=== PATIENT | female | born 1970 | race Caucasian/White ===

== ENCOUNTER → 2016-09-02 | Outpatient (CLI) | payer OTHER | LOC: RAD 01:46 | DX: R92.1 Mammographic calcification found on diagnostic imaging of breast (principal) ==

== ENCOUNTER → 2017-03-12 | Outpatient (CLI) | payer OTHER | LOC: RAD 01:04 | DX: N63.20 Unspecified lump in the left breast, unspecified quadrant (principal); R92.2 Inconclusive mammogram; R92.1 Mammographic calcification found on diagnostic imaging of breast ==

== ENCOUNTER → 2018-03-25 | Outpatient (CLI) | payer OTHER | LOC: RAD 10:32 | DX: Z12.31 Encounter for screening mammogram for malignant neoplasm of breast (principal) ==

== ENCOUNTER → 2019-03-27 | Outpatient (CLI) | payer OTHER | LOC: BC 09:27 | DX: Z12.31 Encounter for screening mammogram for malignant neoplasm of breast (principal) ==

== ENCOUNTER → 2019-04-05 | Outpatient (CLI) | payer OTHER | LOC: ULTRA 11:20 | DX: N64.89 Other specified disorders of breast (principal) ==

== ENCOUNTER → 2019-04-11 | Outpatient (CLI) | payer OTHER ==
--- NOTE | 2019-04-13 12:07 | PATH ---
[facility] [place] [address] PATHOLOGY RPT PROCEDURE Name: HEIDE WESLEY Room #: REG [facility].#: [id number] Admission: 04/11/19 Date of : 70 Discharge: Report #: [id number] Path Case #: [id number] [facility] Accession Number: [id number] . 01 Material submitted: . PART A: breast - LEFT BREAST BIOPSY, 4:00, 5CM. Modifiers: left, 4:00 PART B: breast - LEFT BREAST BIOPSY, 7:00, 5CM. Modifiers: left, 7:00 . 01 Clinical history: . Mass. . 02 Diagnosis: A. Breast mass, left, 4:00, 5 cm from nipple, core needle biopsy: - Fibroepithelial lesion. (Please see comment) . B. Breast mass, left, 7:00, 5 cm from nipple, core needle biopsy: - Simple cysts. - Papillary apocrine metaplasia. - Focal microcalcifications present in association with simple cysts. (Please see comment) . (SKKiki:genny/shiv 04/13/2019) QTP 04/13/2019 0904 Local . 02 Comment: Specimen "A" contains a fibroepithelial lesion in which there are possible leaf-like projections. In addition, focal areas of stromal condensation are present around the ducts. A few mitotic figures are present in the stroma. The differential diagnosis of the lesion in specimen "A" includes a fibroadenoma, a cellular fibroadenoma, and a Phyllodes tumor. . This case has also been reviewed by Dr. William Mirza MD, who agrees with the diagnosis. (SKM:genny/shiv 04/13/2019) . 02 Electronically signed: . Inocente Webb MD, Pathologist NPI- [id number] . 01 Gross description: . A. Received in formalin labeled "Heide Wesley, left breast 4:00 5 cm" are multiple cylindrical saini-yellow soft tissue cores measuring in aggregate 3.0 x 2.8 x 0.8 cm. The specimen is submitted entirely in cassettes A1-A3. The specimen is removed from the patient at 1444 and placed in formalin at 1445 on 04/11/2019. The specimen is removed from formalin at 2340 on 04/11/2019. [address] [address] PATHOLOGY RPT PROCEDURE Name: HEIDE WESLEY Room #: REG CLI July#: [id number] Admission: 04/11/19 Date of : 70 Discharge: Report #: [id number] Path Case #: [id number] . B. Received in formalin labeled "Heide Wesley, left breast 7:00 5 cm" are multiple cylindrical saini-yellow soft tissue cores measuring in aggregate 3.0 x 2.2 x 0.5 cm. The specimen is submitted entirely in cassettes B1-B3. The specimen is removed from the patient and placed in formalin at 1450 on 04/11/2019. The specimen is removed from formalin at 2340 on 04/11/2019. [place] [place] [facility] 04/11/2019 1937 Local . 02 Pathologist provided ICD-10: D24.2, N60.02, N60.82 . 02 CPT . 719858, 143917 Specimen Comment: A courtesy copy of this report has been sent to [phone] Specimen Comment: [id number] Specimen Comment: Report sent to / DR BALL Performed at: 01 [facility] [address] [facility] [address], [place] [id number] MD Link Gomes MD Phone: [phone] Performed at: [address] [id number] MD Mercedes Johnson MD Phone: [phone]
== END | disposition home or self-care (01) ==
LOC: ULTRA 14:05
DX: N60.82 Other benign mammary dysplasias of left breast (principal); D24.2 Benign neoplasm of left breast; R92.1 Mammographic calcification found on diagnostic imaging of breast; N60.02 Solitary cyst of left breast

== ENCOUNTER → 2020-05-02 | Outpatient (CLI) | payer OTHER | LOC: BC 05-01 09:46 | PROVIDERS: ATTEND Obstetrics & Gynecology | DX: Z12.31 Encounter for screening mammogram for malignant neoplasm of breast (principal) ==